=== PATIENT | male | born 1995 | race Caucasian/White ===

== ENCOUNTER 2022-08-12 14:41 | Emergency (ER) | payer MEDICAID, OTHER ==
[~2022-08-12] VITALS: Ht 172.7 cm; Wt 65.9 kg
[~2022-08-12 14:41] MED LIST: NEO/5DRO7 RIGHTEYE
[2022-08-12 14:54] VITALS: BP 110/72
--- NOTE | 2022-08-12 15:01 | NUR ---
Sharon PEREZ in triage to evaluate patient. Patient asking for return to work note. Covid swab sent per PA's orders. DC instructions reviewed, PA to call patient with test results.
== END 2022-08-12 15:08 | disposition home or self-care (01) ==
LOC: ER 14:41
DX: J06.9 Acute upper respiratory infection, unspecified (principal); Z20.822 Contact with and (suspected) exposure to COVID-19
CPT/HCPCS: 87635; 99283; C9803